=== PATIENT | female | born 1945 | race Caucasian/White ===

== ENCOUNTER 2021-10-22 06:35 | Day surgery (SDC) | payer OTHER, MEDICARE ==
[2021-10-17 12:17] LABS: Absolute Lymphocytes (CBC) 1.5 K/uL (0.7-4.9); Hematocrit 39.8 % (36.0-45.0); Lymphocytes % 29.9 % (15.3-44.8)
[2021-10-17 12:21] LABS: Potassium 4.1 mmol/L (3.5-5.1)
[2021-10-17 12:24] LABS: Protime INR 0.98
--- NOTE | 2021-10-17 12:26 | RAD REPORT ---
EXAM DESCRIPTION: RAD - Chest Pa And Lat (2 Views) - 10/17/2021 12:18 pm CLINICAL HISTORY: pre op for surgery Chest pain. COMPARISON: No comparisons FINDINGS: The lungs are clear. The heart is normal in size. No displaced fractures. Moderate axial h iatal hernia.
--- NOTE | 2021-10-18 18:00 | EKG ---
Test Date: 2021-10-17 Test Time: 11:40:54 Facility Coordinator: O[facility] MEASUREMENT RESULTS: Intervals: Rate: 57 MD: 168 QRSD: 86 QT: 426 QTc: 414 [place]: P: 46 MD: 168 QRS: 90 T: 65 INTERPRETIVE STATEMENTS: Sinus bradycardia Rightward axis Borderline ECG No previous ECG available for comparison Electronically Signed On 10-18-21 17:57:47 CDT by Damion Card
[2021-10-22] MEDS ORDERED: AMPICILLIN SODIUM 2 GM in NA CHLORIDE 0.9% 100 ML IVPB SCH (07:00)
[2021-10-22] MEDS: Ringers Lactate 1,000 ML IV ONE ×2 (07:12→07:30)
[2021-10-22] MEDS ORDERED: propofoL 200 MG/20 ML VIAL IV ONE (07:17)
[2021-10-22] MEDS ORDERED: LIDOCAINE 1% MPF 5 ML VIAL ONE (07:18)
[2021-10-22] MEDS ORDERED: FENTANYL CITR 100 MCG/2 ML ONE (07:18)
[2021-10-22] MEDS ORDERED: MIDAZOLAM HCL 2 MG/2 ML INJ ONE (07:18)
[2021-10-22] MEDS ORDERED: ROCURONIUM 50 MG/5 ML VIAL IV ONE (07:19)
[2021-10-22] MEDS: Gentamicin Inj 140 MG in NA CHLORIDE 0.9% 100 ML IVPB SCH ×2 (07:24→07:35)
[2021-10-22] MEDS ORDERED: dexAMETHasone 10 MG/ML VIAL ONE (07:53)
[2021-10-22] MEDS ORDERED: ONDANSETRON 4 MG/2 ML VIAL ONE ×2 (07:53→08:57)
[2021-10-22] MEDS ORDERED: Mastisol Adhesive Liq ONE (08:24)
[2021-10-22] MEDS ORDERED: GLYCOPYRROLATE 0.2 MG/ML SYR ONE ×2 (08:30)
[2021-10-22] MEDS ORDERED: NEOSTIGMINE 1 MG/ML -10 ML VIAL ONE (08:31)
--- NOTE | 2021-10-22 08:46 | RAD REPORT ---
EXAM DESCRIPTION: RAD - Urethrocystogrphy Retrograde - 10/22/2021 8:33 am CLINICAL HISTORY: LEFT STENT COMPARISON: No comparisons FINDINGS/IMPRESSION: Twelve intraoperative fluoroscopic images were submitted showing cannulation of the left ureter and placement of a double-J ureteral stent. Fluoro time: 0.13 minutes
[2021-10-22] MEDS ORDERED: PHENAZOPYRIDINE 100MG TAB PO ONE ×2 (08:59→10:53)
[2021-10-22] MEDS ORDERED: HYDROCODONE/APAP 5/325 MG TAB PO PRN (08:59)
[2021-10-22] MEDS ORDERED: MEPERIDINE HCL 25 MG/ML SYR ONE (09:05)
[2021-10-22] MEDS ORDERED: PROMETHAZINE INJ 25 MG/ML AMP ONE (09:06)
[2021-10-22] MEDS: HYDROMORPHONE HCL 1 MG/ML INJ ONE ×2 (09:13→09:18)
--- NOTE | 2021-10-22 09:32 | OP ---
Surgeon: GABRIELE GEE Preoperative Diagnosis: Left obstructing ureterolithiasis. Postoperative Diagnosis: Left nephroureterolithiasis. Principle Procedure: Left ureteroscopy with laser lithotripsy and stent exchange. Indication For Procedure: Ms. Godwin is a 76-year-old woman with no significant ongoing past medical history, but with a history of recurrent nephroureterolithiasis. She had undergone left ureteral tanvir nt placed on 09/23/[address] Mary for 6 mm obstructing proximal left ureteral calculus. She then saw me in followup and plan for definitive surgical management. Procedure In Detail: The patient was consented in the preoperative holding area before being transfe rred to operative suite where general anesthesia was induced. She was given ampicillin 2 g and genta micin 140 mg IV antimicrobial prophylaxis. Pneumo boots were provided for DVT prophylaxis. She was placed in the lithotomy position, padded and secured to the table appropriately. Her genitalia were prepped using Hibiclens and draped in standard fashion. The case was begun using a 22-Urdu rigid c ystoscope to traverse the urethra into the bladder. The stent was noted to emanate from the left ure teral orifice, and the coil of the stent was grasped and delivered to the meatus. Spot fluoroscopic imagery confirmed the proximal tip of the stent was still within the putative proximal ureter. As a result, I passed a Sensor wire via the stent and it did coil within the putative upper pole of the ki dney. I then removed the stent over the wire leaving the wire in place and back-loaded the dual-lume n catheter over the indwelling safety wire. A retrograde pyelogram was then performed. Left retrograde pyelography: Using a 70:30 mixture of Omnipaque and saline, via the second lumen of the dual-lumen catheter, contr ast was injected and did delineate appropriate intraluminal location of the wire and catheter and del ineation of the calices with a wire in the upper pole. As a result, I removed the dual-lumen cathete r and used the semi-rigid ureteroscope under direct vision to traverse the urethra and into the dista l into the mid and proximal ureter, but the stone was no longer observed in that location. As a resu lt, I passed a [employer] guidewire via the semi-rigid ureteroscope and under direct vision passed it in to the collecting system coiled alongside the indwelling safety wire. Then, I removed the semi-rigid ureteroscope and passed a flexible ureteroscope over the wire into the upper pole of the kidney. I then surveyed each of the calices, and within the mid pole posteriorly, there was the 6 mm calculus p reviously seen in the ureter. I thus fragmented the stone using a 272 nm laser fiber and power setti ng of 0.8 joules and 15 hertz that was eventually increased to 1 joule and 15 hertz to dust the stone into fragments smaller than 1 mm in diameter. The extra power was required due to the hardness of t he core of the stone. In the end, all stones were dusted, and I surveyed each of the calyces again a nd no additional stones were encountered. I thus surveyed down through the renal pelvis and into the proximal down to the mid and distal ureter for any additional calculi. When none were seen, uretero scopy was completed. I then back-loaded the rigid cystoscope over the indwelling safety wire and passed a 6-Urdu by 24 c m double-J left ureteral stent, which coiled in the upper pole fluoroscopically and the coil was form ed cystoscopically within the bladder. I then decompressed her bladder of fluid and urine with the n ote of several calculi dust present within the bladder. The stent was left tether to a string, and t he string was secured to her introitus using Mastisol and Steri-Strips. The patient was then taken o ut of the lithotomy position, awakened from general anesthesia, transferred to a stretcher, and then transferred to the recovery room in good condition. Complications: None. Discharge Disposition: She should follow up in the [facility]rology Clinic within the next 2-3 days for tethe red ureteral stent removal, preferably on Thursday. She may continue the Keflex prescribed preoperativ rey until the stent is removed, or we will provide her a dose of either Macrobid or Bactrim at the ti me of the stent removal. Subsequently, she will perform a 24-hour urine collection on 2 separate occ asions done in about 1 month from today's date of surgery. Subsequent followup may then be establish ed about a month later to review the results and determine her propensity for recurrent stone formation. ELLIOT/PRICEL Voice ID: [id number] Report ID: [id number]
[2021-10-22 09:44] VITALS: BP 157/55; TEMP 97; O2SAT 96
[2021-10-22] MEDS ORDERED: HYDROCODONE/APAP 5/325 MG TAB ONE (09:53)
== END 2021-10-22 10:45 | disposition home or self-care (01) ==
LOC: OR 06:35
PROVIDERS: ATTEND Urology
PROC: 0T778DZ Dilation of Left Ureter with Intraluminal Device, Via Natural or Artificial Opening Endoscopic (ICD-10-PCS; 2021-10-22)
PROC: 0TF78ZZ Fragmentation in Left Ureter, Via Natural or Artificial Opening Endoscopic (ICD-10-PCS; principal; 2021-10-22 07:30)
DX: N20.1 Calculus of ureter (principal); Z20.822 Contact with and (suspected) exposure to COVID-19
CPT/HCPCS: 36415; 51610; 71046; 74450; 80048; 85025; 85610; 87086; 87088; 93005; J0290; J1100; J1170; J1580; J2175; J2250; J2405; J2550; J2704; J2710; J3010; J7120; U0002